=== PATIENT | male | born 1970 | race African-American/Black ===

== ENCOUNTER 2018-07-26 10:17 | Emergency (ER) | payer BC ==
[~2018-07-26] VITALS: Ht 162.6 cm; Wt 85.0 kg
[2018-07-26 10:19] VITALS: BP 163/102
[2018-07-26] MEDS ORDERED: LIDOCAINE-MPF 1%, 5ML INFIL ONE (10:30)
[2018-07-26] MEDS ORDERED: DIPH,PERTUSS(ACELL),TET VAC/PF 0.5 ML IM-VACC ONE ×2 (10:30→10:43)
[2018-07-26] MEDS ORDERED: LIDOCAINE-MPF 1%, 5ML ONE (10:43)
== END 2018-07-26 11:50 | disposition home or self-care (01) ==
LOC: ED 11:39
DX: L03.011 Cellulitis of right finger (principal); E11.9 Type 2 diabetes mellitus without complications
CPT/HCPCS: 10060; 90471; 90715; 99283

== ENCOUNTER 2019-01-18 03:53 | Emergency (ER) | payer BC, MEDICAID ==
[~2019-01-18] VITALS: Ht 162.6 cm; Wt 97.0 kg
--- NOTE | 2019-01-18 04:19 | NUR ---
FIRST CONTACT WITH PT. PT SOB AND VOMITING AND FEELING "UNWELL". PT STATES THAT HE'S DIABETIC. PT'S AOX4. RESPS EVEN AND UNLABORED. PT C/O DZY/N/V/D WELL. ALL MONITORS IN PLACE. CALL LIGHT WITHIN REACH.
[2019-01-18] MEDS ORDERED: MECLIZINE CHEWABLE 25 MG TAB ONE (04:53)
--- NOTE | 2019-01-18 04:56 | NUR ---
PT MEDICATED PER EMAR. PT TOLERATED WELL.
[2019-01-18] MEDS ORDERED: MECLIZINE CHEWABLE 25 MG TAB PO ONE (05:00)
[2019-01-18] MEDS ORDERED: SODIUM CHLORIDE FLUSH 10ML SYR IVF ONE (05:00)
[2019-01-18 05:13] LABS: BASOPHILS # (AUTO) 0.02 x10^3/uL (0-0.1); BASOPHILS % (AUTO) 1 % (0-1); EOSINOPHILS # (AUTO) 0.04 x10^3/uL (0-0.4); EOSINOPHILS % (AUTO) 1 % (1-7); LYMPHOCYTES # (AUTO) 1.75 x10^3/uL (1-3.4); LYMPHOCYTES % (AUTO) 51 % (22-44); MD NO; MEAN CORPUSCULAR HEMOGLOBIN 32.4 pg (27.5-34.5); MEAN CORPUSCULAR HGB CONC 33.9 g/dL (33.2-36.2); MEAN CORPUSCULAR VOLUME 95.5 fL (81-97); MEAN PLATELET VOLUME 7.9 fL (7.4-10.4); MONOCYTES # (AUTO) 0.23 x10^3/uL (0.2-0.8); MONOCYTES % (AUTO) 7 % (2-9); NEUTROPHILS # (AUTO) 1.41 x10^3/uL (1.8-6.8); NEUTROPHILS % (AUTO) 41 % (42-75); PLATELET COUNT 198 x10^3/uL (130-400); RED BLOOD COUNT 5.08 x10^6/uL (4.38-5.82); RED CELL DISTRIBUTION WIDTH 13.2 % (9.4-14.8)
[2019-01-18 05:26] LABS: ALANINE AMINOTRANSFERASE 35 U/L (12-78); ALBUMIN 4.1 g/dL (3.4-5.0); ANION GAP 6 mmol/L (5-15); CHLORIDE 109 mmol/L (98-107); CREATININE 1.06 mg/dL (0.7-1.3)
[2019-01-18 05:31] LABS: ALKALINE PHOSPHATASE 83 U/L (45-117); BILIRUBIN,TOTAL 0.8 mg/dL (0.2-1.0); TOTAL PROTEIN 7.7 g/dL (6.4-8.2); TROPONIN I < 0.015 ng/mL (0.000-0.045)
[2019-01-18 06:41] VITALS: BP 114/76
--- NOTE | 2019-01-18 06:55 | NUR ---
REPORT GIVEN TO SHERRELL LANDRY.
--- NOTE | 2019-01-18 07:30 | NUR ---
Patient/Caregiver given discharge instructions and they have confirmed that they understand the instructions. Patient ambulatory with steady gait.
== END 2019-01-18 07:31 | disposition home or self-care (01) ==
LOC: ED 05:43
DX: R42 Dizziness and giddiness (principal); R11.2 Nausea with vomiting, unspecified; E11.9 Type 2 diabetes mellitus without complications
CPT/HCPCS: 36415; 71045; 80053; 83690; 84484; 85025; 93005; 99284

== ENCOUNTER 2020-09-24 06:31 | Emergency (ER) | payer MEDICAID ==
[2020-09-24 07:29] LABS: MEAN CORPUSCULAR HEMOGLOBIN 31.6 pg (27.5-34.5); MEAN CORPUSCULAR HGB CONC 33.9 g/dL (33.2-36.2); MEAN PLATELET VOLUME 8.3 fL (7.4-10.4); PLATELET COUNT 163 x10^3/uL (130-400); RED BLOOD COUNT 5.04 x10^6/uL (4.38-5.82); RED CELL DISTRIBUTION WIDTH 14.4 % (9.4-14.8)
[2020-09-24 07:34] LABS: ALBUMIN 4.2 g/dL (3.4-5.0); ANION GAP 4 mmol/L (5-15); CHLORIDE 108 mmol/L (98-107); CREATININE 1.13 mg/dL (0.7-1.3)
[2020-09-24 07:53] LABS: MD YES
[2020-09-24 07:55] LABS: BASOS#(MANUAL) 0.03 x10^3/uL (0-0.1); BASOS% (MANUAL) 1 % (0-1); EOS#(MANUAL) 0.11 x10^3/uL (0.0-0.4); EOS% (MANUAL) 4 % (1-7); LYMPHS% (MANUAL) 43 % (22-44); MONOS#(MANUAL) 0.25 x10^3/uL (0.3-2.7); MONOS% (MANUAL) 9 % (2-9); REACTIVE LYMPHS # (MANUAL) 0.06 x10^3/uL (0-0); REACTIVE LYMPHS % (MANUAL) 2 % (0-0); SEG#(MANUAL) 1.15 x10^3/uL (1.8-6.8); SEGS% (MANUAL) 41 % (42-75)
[2020-09-24 07:56] LABS: <PLATELET ESTIMATE> ADEQUATE; <PLT MORPHOLOGY> NORMAL PLT MORPH; <RBC MORPHOLOGY> NORMAL
[2020-09-24 08:42] LABS: MICROSCOPIC NOT IND
[2020-09-24 08:44] VITALS: BP 110/68
--- NOTE | 2020-09-24 08:45 | NUR ---
Patient given discharge instructions and work note they have confirmed that they understand the instructions. Patient stable and ambulatory with steady gait from ED to private vehicle.
== END 2020-09-24 08:46 | disposition home or self-care (01) ==
LOC: ED 07:26
DX: U07.1 COVID-19 (principal); J06.9 Acute upper respiratory infection, unspecified; R05 Cough; M54.6 Pain in thoracic spine; R09.81 Nasal congestion; R10.9 Unspecified abdominal pain; M79.10 Myalgia, unspecified site; E11.9 Type 2 diabetes mellitus without complications
CPT/HCPCS: 36415; 71045; 80048; 81003; 82040; 85025; 93005; 99285; U0003

== ENCOUNTER 2020-09-30 12:22 | Emergency (ER) | payer MEDICAID ==
[~2020-09-30] VITALS: Ht 165.1 cm; Wt 83.4 kg
--- NOTE | 2020-09-30 12:59 | NUR ---
ASSUMED CARE. PT IS HERE FOR RECHECK OF COVID. HERE RESP SX (COUGH, FLUY SX)
--- NOTE | 2020-09-30 13:00 | NUR ---
09/24 PT WAS HERE FOR FLU LIKE SX AND COUGH, LOST SENSE OF SMELL. SX RESOLVED, CAN SMELL.
[2020-09-30] MEDS ORDERED: LISI-606 PO (13:06)
[2020-09-30] MEDS ORDERED: GLIM4TAB8 PO (13:06)
[2020-09-30] MEDS ORDERED: SIMV20TA19 PO (13:06)
[2020-09-30] MEDS ORDERED: METF500T17 PO (13:06)
[2020-09-30 14:54] VITALS: BP 134/78
== END 2020-09-30 15:52 | disposition home or self-care (01) ==
LOC: ED 14:30
DX: U07.1 COVID-19 (principal); R77.9 Abnormality of plasma protein, unspecified; E11.9 Type 2 diabetes mellitus without complications
CPT/HCPCS: 99283; U0003

== ENCOUNTER 2020-10-16 12:52 | Emergency (ER) | payer MEDICAID ==
[~2020-10-16] VITALS: Ht 170.2 cm; Wt 80.1 kg
[~2020-10-16 12:52] MED LIST: GLIM4TAB8 PO; LISI-606 PO; METF500T17 PO; SIMV20TA19 PO
[2020-10-16 13:35] VITALS: BP 117/82
--- NOTE | 2020-10-16 13:35 | NUR ---
PT REC'VD DISCHARGE INSTRUCTIONS AND EDUCATION. PT HAD NO FURTHER QUESTIONS. PT AMBULATED TO DC AREA, STEADY GAIT.
== END 2020-10-16 13:50 | disposition home or self-care (01) ==
LOC: ED 13:47
DX: Z00.00 Encounter for general adult medical examination without abnormal findings (principal); Z20.822 Contact with and (suspected) exposure to COVID-19; E11.9 Type 2 diabetes mellitus without complications
CPT/HCPCS: 99283; U0003